=== PATIENT | male | born 1950 | race Caucasian/White ===

== ENCOUNTER → 2016-09-16 | Outpatient (CLI) | payer MEDICARE, OTHER ==
--- NOTE | ~2016-09-16 | MR10 ---
[facility] A Service of [facility] & [facility] RADIOLOGY TEXT RESULTS PATIENT: CARIN WHITAKER LOCATION: [facility] : 48 UNIT #: [id number] AGE: [address]: Gerson Neal MD SEX: M ORDER DR: [id number] [address] [id number] O MR#: [id number] Acc #: [id number] NAME: CARIN WHITAKER : 1950 SEX: M STUDY DATE/TIME: 09/16/2016 11:21 UNIT: [facility] ROOM: STUDY DESCRIPTION: MR Ankle Wo Contrast Lt Attending Physician: Bernardino Neal M.D. Referring Physician: Bernardino Neal M.D. Ordering Physician: Bernardino Neal M.D. Primary Care Physician: Arpita Carbajal A.P.R.N. MRI CENTER REPORT This report is preliminary unless electronic signature is present. EXAM MRI of the left ankle without contrast. HISTORY 66-year-old male complains of chronic left ankle pain, diffuse pain and swelling off and on for over a year. Concern for osteoarthritis. COMPARISON Left ankle films, 09/01/2016. FINDINGS Multiplanar, multiecho imaging was performed of the left ankle utilizing a high-field magnet and dedicated protocol. Early arthritic changes is seen in the ankle joint with developing marginal hypertrophic change. No evidence of high-grade chondromalacia. No focal marrow edema. There is a small amount of edema and cystic change along the inferior aspect of the medial malleolus at the origin of the deep deltoid ligament, most likely reflects some enthesopathic change. Signal abnormality suggests chronic deep deltoid ligament sprain. Lateral ankle ligament complex appear intact. The ankle tendons appear normal. Sinus tarsi, tarsal tunnel, and plantar fascia unremarkable. Subchondral cystic change noted within the navicular bordering the talonavicular joint may correspond to an area of chondromalacia. Early arthritic change is seen at the talonavicular joint. Intrinsic foot musculature appears normal. IMPRESSION 1. 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 Subchondral cystic changes within the navicular may correspond to an area of at least moderate-grade chondromalacia. 2. Chronic deep deltoid ligament tear with enthesopathic cystic changes medial malleolus. [facility]. [facility] A Service of [facility] RADIOLOGY TEXT RESULTS PATIENT: CARIN WHITAKER LOCATION: [facility] : 48 UNIT #: [id number] AGE: [address]: Gerson Neal MD SEX: M ORDER DR: 3. Please note, not appreciated on the MRI but seen on the patient's corresponding conventional radiographs, there is deformity of the distal tibia compatible with an old healed distal tibial fracture. Dictated by... Matt Mathur M.D. THIS IS AN ELECTRONICALLY VERIFIED REPORT Matt Mathur M.D. at 09/21/2016 9:27 AM CHRISTINA/jn TD: 09/17/2016 09:56 JOB #: [id number] MRI CENTER REPORT Page 1 of 1
== END | disposition home or self-care (01) ==
LOC: SMRI 10:21
DX: M19.072 Primary osteoarthritis, left ankle and foot (principal)
CPT/HCPCS: 73721